=== PATIENT | male | born 1955 | race Caucasian/White ===

== ENCOUNTER → 2021-04-03 | Outpatient (CLI) | payer OTHER | LOC: M OUTALCOH 07:41 | PROVIDERS: ATTEND Psychiatry & Neurology Psychiatry | DX: Z04.6 Encounter for general psychiatric examination, requested by authority (principal) ==

== ENCOUNTER 2021-04-10 10:54 | Outpatient (RCR) | payer OTHER | END 2021-05-01 | LOC: M OUTALCOH 10:54 | PROVIDERS: ATTEND Psychiatry & Neurology Psychiatry | DX: Z03.89 Encounter for observation for other suspected diseases and conditions ruled out (principal) ==